=== PATIENT | female | born 1945 | race Caucasian/White ===

== ENCOUNTER 2020-06-28 08:35 | Outpatient (REF) | payer MEDICARE, SELFPAY ==
--- NOTE | ~2020-06-28 | CT_ITS ---
EXAMINATION: CT CHEST WITHOUT CONTRAST CLINICAL INFORMATION: Pulmonary nodules COMPARISON: None TECHNIQUE: Multidetector volumetric CT imaging of the chest was done. Axial MIP volume rendering provided. Sagittal and coronal reformatted images were obtained. This CT examination was performed using dose optimization techniques as appropriate, variously including the following: *Automated exposure control *Adjustment of mA and/or kV according to patient size (this includes techniques or standardized protocols for targeted exams where dose is matched to indication/reason for exam; i.e. extremities or head) *Use of iterative reconstruction technique DLP: 202 mGy-cm FINDINGS: LUNGS: There is mild biapical pleural and parenchymal scarring. There is a 3 mm right upper lobe pulmonary nodule axial image 78 series 5. There is a 3 mm peripheral left lower lobe nodule axial image 312 series 5. There is a 2 mm peripheral left lower lobe nodule axial image 340 series 5. There is a 2 mm peripheral left lower lobe nodule axial image 416 series 5. There is a 2 x 3 mm peripheral or subpleural right lower lobe nodule axial image 412 series 5. There is a 2 mm peripheral left lower lobe nodule axial image 416 series 5. MEDIASTINUM: There is coronary artery calcification. The mediastinum is otherwise normal. PLEURA: There is no pleural effusion. No pleural mass or thickening. AXILLA: No lymphadenopathy. UPPER ABDOMEN: There is a 2 low-attenuation liver lesions high in the liver measuring 1 cm in the right lobe and 5 mm in the left lobe axial image 47 series 3. There may be a 1.5 cm cyst exophytic to the upper pole of the right kidney. There is a 2 cm cyst exophytic to the upper pole of the left kidney. OSSEOUS STRUCTURES: There are degenerative changes of the spine. CT/CT chest wo con IMPRESSION: Small pulmonary nodules, largest measuring 3 mm at the right lung apex. According to the UPDATED 2017 Fleischner Society recommendations, the advised follow-up imaging for less than 6 mm nodule: Low risk, no chest CT follow-up and high risk, optional chest CT follow-up in one year. Coronary artery calcification.
== END 2020-06-28 08:36 | disposition home or self-care (01) ==
LOC: HO.CT 08:35
PROVIDERS: PCP Internal Medicine; Visit Provider Hospitalist
DX: R91.8 Other nonspecific abnormal finding of lung field (principal)
CPT/HCPCS: 71250

== ENCOUNTER → 2020-08-24 08:43 | Outpatient (BNVA) | payer MEDICARE, SELFPAY | PROVIDERS: PCP Internal Medicine; Visit Provider Hospitalist | DX: G47.33 Obstructive sleep apnea (adult) (pediatric) (principal); R91.8 Other nonspecific abnormal finding of lung field; Z99.89 Dependence on other enabling machines and devices | CPT/HCPCS: 99212 ==

== ENCOUNTER → 2021-07-14 09:40 | Outpatient (BNVA) | payer MEDICARE, SELFPAY | PROVIDERS: PCP Internal Medicine; Visit Provider Hospitalist | DX: G47.33 Obstructive sleep apnea (adult) (pediatric) (principal); R91.8 Other nonspecific abnormal finding of lung field; R06.00 Dyspnea, unspecified; Z99.89 Dependence on other enabling machines and devices | CPT/HCPCS: 99212 ==

== ENCOUNTER → 2021-08-28 21:43 | Outpatient (REF) | payer MEDICARE, SELFPAY | LOC: HO.SL 21:43 | PROVIDERS: Visit Provider Hospitalist | DX: G47.33 Obstructive sleep apnea (adult) (pediatric) (principal) | CPT/HCPCS: 95811 ==

== ENCOUNTER → 2021-09-16 10:29 | Outpatient (BNVA) | payer MEDICARE, SELFPAY | PROVIDERS: PCP Internal Medicine; Visit Provider Hospitalist | DX: G47.33 Obstructive sleep apnea (adult) (pediatric) (principal); Z99.89 Dependence on other enabling machines and devices; R91.8 Other nonspecific abnormal finding of lung field; R06.00 Dyspnea, unspecified | CPT/HCPCS: 99212 ==

== ENCOUNTER 2022-06-29 07:21 | Outpatient (REF) | payer MEDICARE, SELFPAY ==
--- NOTE | ~2022-06-29 | CT_ITS ---
EXAMINATION: CT CHEST WITHOUT CONTRAST CLINICAL INFORMATION: Abnormal lung findings COMPARISON: CT chest 06/28/2020 TECHNIQUE: Multidetector volumetric CT imaging of the chest was done. Axial MIP volume rendering provided. Sagittal and coronal reformatted images were obtained. This CT examination was performed using dose optimization techniques as appropriate, variously including the following: *Automated exposure control *Adjustment of mA and/or kV according to patient size (this includes techniques or standardized protocols for targeted exams where dose is matched to indication/reason for exam; i.e. extremities or head) *Use of iterative reconstruction technique DLP: 152 mGy-cm FINDINGS: ADULT CAREGIVER: Well-inflated lungs. LUNGS: The lungs are well-expanded and clear of acute pneumonic process. There is minimal bilateral apical parenchymal scarring and pleural thickening. There are several pulmonary nodules. A 3 mm right apical nodule image 42/6, a 2 mm right intrafissural nodule axial image 186/6, a subpleural 2 mm nodule left lower lobe axial image 181/6, a 2 mm ground-glass nodule right upper lobe axial image 172/6, a 2 mm subpleural nodule left lower lobe axial image 221/6, subpleural 2 mm nodule left lower lobe axial image 245/2, a 2 mm nodule posterior basal segment left lower lobe image 307/6. There are more subpleural 2 mm nodules right and left lower lobes axial image 311/6 and 323/6. All these nodules are stable. No acute consolidation seen. MEDIASTINUM: The thyroid lobes are symmetrical and normal. The central trachea and the bronchi are widely patent. Heart size and the great vessels are normal caliber. No pericardial effusion seen. No abnormal size mediastinal or hilar lymph nodes. CORONARY ARTERY CALCIFICATION: There is moderate coronary artery calcifications present. PLEURA: There is no pleural effusion. No pleural mass or thickening. AXILLA: No lymphadenopathy. UPPER ABDOMEN: There is an 8 mm nodule right hepatic lobe. The rest of the liver is unremarkable. Spleen, pancreas and bilateral adrenal glands unremarkable. There is a hyperdense gallbladder likely hyperdense bile or small stones. OSSEOUS STRUCTURES: There are degenerative disc changes and ventral spondylosis throughout mid and lower dorsal spine. No aggressive lytic or sclerotic process seen. CT/CT chest wo IV con IMPRESSION: 1. Stable bilateral pulmonary nodules. No new nodules seen. 2. No abnormal mediastinal or axillary lymphadenopathy. 3. Hyperdense bile or small stones in the gallbladder. 4. Small right hepatic lobe nodule, probable cyst is stable. Fleischner guidelines were followed.
== END 2022-06-29 07:22 | disposition home or self-care (01) ==
LOC: HO.CT 07:21
PROVIDERS: PCP Internal Medicine; Visit Provider Hospitalist
DX: R91.8 Other nonspecific abnormal finding of lung field (principal)
CPT/HCPCS: 71250

== ENCOUNTER → 2022-07-28 08:20 | Outpatient (BNVA) | payer MEDICARE, SELFPAY | PROVIDERS: PCP Internal Medicine; Visit Provider Hospitalist | DX: G47.33 Obstructive sleep apnea (adult) (pediatric) (principal); R91.8 Other nonspecific abnormal finding of lung field; R06.00 Dyspnea, unspecified; Z99.89 Dependence on other enabling machines and devices | CPT/HCPCS: 99212 ==

== ENCOUNTER → 2022-08-11 20:53 | Outpatient (REF) | payer MEDICARE, SELFPAY | LOC: HO.SL 20:53 | PROVIDERS: PCP Internal Medicine; Visit Provider Hospitalist | DX: G47.33 Obstructive sleep apnea (adult) (pediatric) (principal); Z99.89 Dependence on other enabling machines and devices | CPT/HCPCS: 95811 ==

== ENCOUNTER → 2022-08-11 20:56 | Outpatient (BNV) | payer MEDICARE, SELFPAY | PROVIDERS: PCP Internal Medicine; Visit Provider Psychiatry & Neurology Neurology | DX: G47.33 Obstructive sleep apnea (adult) (pediatric) (principal); G47.61 Periodic limb movement disorder | CPT/HCPCS: 95811 ==

== ENCOUNTER 2022-10-04 08:10 | Outpatient (AMB) | payer MEDICARE, SELFPAY ==
[2022-10-04 08:27] VITALS: BP 124/60; PULSE 60; O2SAT 97; BMI 25.2
--- NOTE | 2022-10-04 08:27 | MHC.OFFVIS ---
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 Her asthma has been in good control. Has been using her respiratory inhalers without any difficulties. Has been using her rescue inhaler less than 2 times a week. In regards to her CPAP she uses the CPAP every night. The CPAP therapy is effective beneficial. She tries to use it more than 4 hours a night. Sometimes she does not use it. She is wondering if she still needs her CPAP. She is trying positional changes to her sleep to see if she can do without it. Therefore, we will plan to repeat her sleep study next year. We could also consider a oral appliance if she continues having hard time with her CPAP. She also had a CT scan of the chest that we personally reviewed in the office. Has a pulmonary nodule which appears to be stable when compared to her CT scan from 2018. Also has calcifications to her coronary arteries on the CT scan. 08/29/2019 The patient is here for pulmonary follow-up visit. Overall she is doing well. She did have significant allergy symptoms is here. She was taking the Mucinex in addition to antihistamines. We did talk about considering singular in the future. Right now her allergies a better we can hold off at this time. She has been having issues with her CPAP. She has had a hard time with the nasal mask and having a dry mouth. She has tried multiple chin straps without a significant improvement. We did talk about the importance of trying a fullface mask. I did have a sample N30i mask that she is going to try period seem to fit well. She is going to call to let us know if she is tolerating his we can get a download from her machine. In the meantime she continues with respiratory medicine appears to be working well. She does have pulmonary nodules. There were unchanged in 2019 when compared to 2018. She was scheduled for CT scan in October however, she is leaving to [place]. She will be back in June. Therefore, will do it when she comes back from [place]. However, she develops any respiratory symptoms or any persistent symptoms she needs to talk to her doctors in [place] in order to consider getting the sooner. 08/24/2020 the patient is here for pulmonary follow-up visit. The patient has been struggling with her CPAP. It appears that she has been removing with now realizing. She has been having difficulties with her mask. She has been using several different masks this time. Her APAP was then a 8 to 16 centimeters. her pressure is 12.6 and her AHI is slightly elevated over 5. she usually position the mask in the early evening and is able to fall asleep and she wakes up with it her face. I did switch her to a regular CPAP of 12 centimeters started with a ramp of 8. she will use that for 2 weeks with the F30 small mask. I will be able to download the machine and see how she is doing. I did request abscess from [facility] for her view of how. The meantime she also had a CT scan of the chest back in June 2020 still demonstrating small subcentimeter pulmonary nodules largest 3 millimeters in size the this is consistent with her previous CT scan. 07/14/2021 the patient is here for a pulmonary follow-up visit. She still struggling with her CPAP. Initially we had switched her to a CPAP of 12 cm based on average pressure needs. However she was not able to tolerated. She keeps taking it off after a couple hours. She is using multiple sleep aids including lorazepam and Wellbutrin. However, those done appear to be effective in helping her staying deep sleep. The patient will benefit from taking additional sleep aids. However, with a dose of lorazepam I am concerned of the polypharmacy and medication to medication interaction. Her AHI is down to 5.0 when she does use it. I switched her back to an APAP. I do believe that with her significant sleep apnea and inability to titrate and tolerate the pressures that a titration study would be most effective and taking care of her difficulties tolerating CPAP. I will submit for titration study as well as possible. The patient also complaining of dyspnea on exertion and her blood pressure slightly elevated. We did recheck her blood pressure was better. The patient also had a CT scan of the chest back in June 2020 demonstrating subcentimeter pulmonary nodules. Will plan to follow-up with a CT scan in June 2022 to make sure that the pulmonary nodules have not changed. Once the patient undergoes addition study will have her come back to follow up with the results. 09/16/2021 the patient is here for a pulmonary follow-up visit. She continues to struggle with CPAP. We have adjusted her pressures further. She did bring her machine in and we did download the data and AHI continues to be elevated. She had undergone a CPAP titration study however, she could not tolerate the masks well and she spent a lot of time awake and therefore it was very limited. the could only titrate the CPAP and even on the titration study her AHI was still Elevated. Therefore seems that the patient is failing CPAP and she does need to switch over to BiPAP. She has significant sleep apnea specially a REM related sleep disorder. I will request the BiPAP from her [employer] at this time. In regards of her pulmonary nodules the patient was last CT scan was back in June 2021. Plan to repeat the CT scan June of 2022 unless the patient develops any worsening symptoms. 07/28/2022 the patient is here for pulmonary follow-up visit. The patient did not get a BiPAP. She continues use her CPAP. Unfortunately she continues to have daytime drowsiness. She has a hard time tolerating the CPAP. I did download her machine that she bread in in her AHI continues to be elevated around 15 events an hour. Therefore CPAP but she is not working for her. The patient does need to have a titration study to better appreciate her settings and to make sure that we can find an effective treatment for her significant sleep apnea. Patient continues to have an elevated [place] score of 12/24. In addition to that the patient did have a CT scan of the chest last back in June 2022. This was compared to a CT scan from 2020. No significant changes in the pulmonary nodules therefore reassuring. Hold off on additional imaging at this time. 10/04/2022 the patient is here for pulmonary follow-up visit. Overall the patient has been sleeping fairly decent. She has been using the gabapentin with good effect. Sometimes the some work but her most part does. 300 mg 1 hour before seems to be effective for her. If she needs additional medication she can always call and we can increase it a little bit. She sleeps on her side now sometimes she sleeps on a wedge. She sleeps better when she sleeps on her side hour. She gets better sleep. She wakes up rested. However lately she has been noticing severe abdominal discomfort that wakes her up from a sound sleep when she sleeps on her side. Does not matter left to right. She was evaluated by primary care doctor and GI doctor. She has had CT scans and MRIs. No evidence of any active concerning disease. She does have some discomfort now for which she takes a deep breath in and she compresses the belly she does get some on discomfort. It may be bloating sensation. I did recommend she can try simethicone to see if this provides her some relief. She is going to try to until she sees her GI doctor and see if this helps. In the meantime the patient will continue the gabapentin. In regards of her sleep apnea seems like her sleep study that she had recently was reassuring that she does not need to use CPAP. However, she has had a CPAP for many years. Will go ahead and retest her with a home sleep study in the spring when she comes back in [place]. [facility] Medical History (Updated 10/04/22 @ 18:41 by José Miguel Benjamin MD) Dyspnea Insomnia MAGDA (obstructive sleep apnea) MAGDA on CPAP Pulmonary nodules Social History (Updated 08/24/20 @ 08:58 by Rhonda Castillo Milka) Patient Tobacco Use Status: Never used Tobacco Review of Systems Const Denies daytime sleepiness and Denies night sweats ENT Denies change in voice, Denies lip swelling, Denies mouth pain, Reports nasal congestion, Reports nasal discharge and Denies tongue swelling Card Denies chest pain and Denies dyspnea on exertion Resp Denies cough and Denies dyspnea on exertion GI Reports abdominal pain Musc Denies no additional complaints Skin/Breast Denies rash Neuro Denies Neuro-related abnormal movements Psych Denies no additional complaints Frank/Lymph Denies easy bleeding and Denies lymphadenopathy Aller/Immun Denies lip swelling and Denies tongue swelling Physical Exam Vital Signs: Last Vital Signs Pulse 60 10/04/22 08:27 BP 124/60 08/30/23 08:27 Pulse Ox 97 10/04/22 08:27 Oxygen Delivery Method Room Air 10/04/22 08:27 BMI result Body Mass Index 25.2 Const General: alert HEENT Head: Yes normal to inspection Neck Neck: Yes normal visual inspection, Yes full ROM and Yes no lymphadenopathy Chest Chest palpation & inspection: normal inspection of the chest Resp Auscultation: clear to auscultation bilaterally Cardio Rate: regular rate Rhythm: regular rhythm Heart sounds: S1 normal heart sound present and S2 normal heart sound present GI Palpation (GI): Soft to palpation, Tenderness to palpation present (GI) in the LLQ, in the RLQ, in the LUQ and in the RUQ and Guarding due to palpation present (GI) Auscultation: normal bowel sounds Skin General skin exam: rashes and/or lesions noted Extrem General: No clubbing, No cyanosis and No edema Assessment & Plan Assessment & Plan (1) Pulmonary nodules: Code(s): R91.8 - Other nonspecific abnormal finding of lung field (2) Dyspnea: Code(s): R06.00 - Dyspnea, unspecified (3) Insomnia: Code(s): G47.00 - Insomnia, unspecified (4) Abdominal pain: Code(s): R10.9 - Unspecified abdominal pain (5) MAGDA (obstructive sleep apnea): Comment: no longer on CPAP Code(s): G47.33 - Obstructive sleep apnea (adult) (pediatric) Plan continue Gabapentin 300mg PO QHS Trial simethicone at night positional sleep therapy for MAGDA, will plan to repeat home sleep study in the spring 2023 pulmonary nodules have been stable based on her recent CT scan 06/2022. Therefore nodules appear to be benign. No additional serial CT scans at this time. F/U 6-8 months Medications: New gabapentin 300 mg PO BEDTIME 30 days 30 caps 11RF simethicone (Gas Relief (simethicone)) 180 mg PO DAILY 30 days 30 caps 11RF Coding Level of Care Code Est Pt Level 4 (30456) Diagnoses Pulmonary nodules R91.8 Dyspnea R06.00 Insomnia G47.00 Abdominal pain R10.9 MAGDA (obstructive sleep apnea) G47.33 Time Spent (min) 18
== END 2022-10-04 08:56 | disposition home or self-care (01) ==
PROVIDERS: PCP Internal Medicine; Visit Provider Hospitalist
DX: R91.8 Other nonspecific abnormal finding of lung field (principal); R06.00 Dyspnea, unspecified; G47.00 Insomnia, unspecified; R10.9 Unspecified abdominal pain; G47.33 Obstructive sleep apnea (adult) (pediatric)
CPT/HCPCS: 99214

== ENCOUNTER → 2022-10-04 08:10 | Outpatient (BNVA) | payer MEDICARE, SELFPAY | PROVIDERS: PCP Internal Medicine; Visit Provider Hospitalist | DX: R91.8 Other nonspecific abnormal finding of lung field (principal); R06.00 Dyspnea, unspecified; G47.00 Insomnia, unspecified; R10.9 Unspecified abdominal pain; G47.33 Obstructive sleep apnea (adult) (pediatric); Z79.899 Other long term (current) drug therapy | CPT/HCPCS: 99212 ==

== ENCOUNTER 2023-08-20 10:07 | Outpatient (AMB) | payer MEDICARE, SELFPAY ==
--- NOTE | 2023-08-20 10:15 | A.OFFVIS_ITS ---
Vital Signs 08/20/23 10:16 Height 5 ft 3 in Weight 141 lb 5.061 oz BMI 25.0 BP 124/60 Blood Pressure Location Lt brachial Position Sitting Pulse 61 Pulse Source Pulse Oximeter Pulse Oximetry (%) 96 Oxygen Delivery Method Room Air Intake Visit Reasons: pulm nodule Ethylbenzene Cracking Supervisor Required: No Allergies hydromorphone [Dilaudid] Allergy (Severe, Verified 08/20/23 10:19) Hives Benadryl Allergy (Severe, Uncoded 08/20/23 10:19) Itching Penicillin Allergy (Severe, Uncoded 08/20/23 10:19) Rash HPI Comments Details: The patient is a 78 y/o woman with a history of COPD, MAGDA on CPAP in addition to pulmonary nodules. Her asthma has been in good control. Has been using her respiratory inhalers without any difficulties. Has been using her rescue inhaler less than 2 times a week. In regards to her CPAP she uses the CPAP every night. The CPAP therapy is effective beneficial. She tries to use it more than 4 hours a night. Sometimes she does not use it. She is wondering if she still needs her CPAP. She is trying positional changes to her sleep to see if she can do without it. Therefore, we will plan to repeat her sleep study next year. We could also consider a oral appliance if she continues having hard time with her CPAP. She also had a CT scan of the chest that we personally reviewed in the o ffice. Has a pulmonary nodule which appears to be stable when compared to her CT scan from 2018. Also has calcifications to her coronary arteries on the CT scan. 08/29/2019 The patient is here for pulmonary follow-up visit. Overall she is doing well. She did have significant allergy symptoms is here. She was taking the Mucinex in addition to antihistamines. We did talk about considering singular in the future. Right now her allergies a better we can hold off at this time. She has been having issues with her CPAP. She has had a hard time with the nasal mask and having a dry mouth. She has tried multiple chin straps without a significant improvement. We did talk about the importance of trying a fullface mask. I did have a sample N30i mask that she is going to try period seem to fit well. She is going to call to let us know if she is tolerating his we can get a download from her machine. In the meantime she continues with respiratory medicine appears to be working well. She does have pulmonary nodules. There were unchanged in 2019 when compared to 2018. She was scheduled for CT scan in October however, she is leaving to [place]. She will be back in June. Therefore, will do it when she comes back from [place]. However, she develops any respiratory symptoms or any persistent symptoms she needs to talk to her doctors in [place] in order to consider getting the sooner. 08/24/2020 the patient is here for pulmonary follow-up visit. The patient has been struggling with her CPAP. It appears that she has been removing with now realizing. She has been having difficulties with her mask. She has been using several different masks this time. Her APAP was then a 8 to 16 centimeters. her pressure is 12.6 and her AHI is slightly elevated over 5. she usually position the mask in the early evening and is able to fall asleep and she wakes up with it her face. I did switch her to a regular CPAP of 12 centimeters started with a ramp of 8. she will use that for 2 weeks with the F30 small mask. I will be able to download the machine and see how she is doing. I did request abscess from [facility] for her view of how. The meantime she also had a CT scan of the chest back in June 2020 still demonstrating small subcentimeter pulmonary nodules largest 3 millimeters in size the this is consistent with her previous CT scan. 07/14/2021 the patient is here for a pulmonary follow-up visit. She still struggling with her CPAP. Initially we had switched her to a CPAP of 12 cm based on average pressure needs. However she was not able to tolerated. She keeps taking it off after a couple hours. She is using multiple sleep aids including lorazepam and Wellbutrin. However, those done appear to be effective in helping her staying deep sleep. The patient will benefit from taking additional sleep aids. However, with a dose of lorazepam I am concerned of the polypharmacy and medication to medication interaction. Her AHI is down to 5.0 when she does use it. I switched her back to an APAP. I do believe that with her significant sleep apnea and inability to titrate and tolerate the pressures that a titration study would be most effective and taking care of her difficulties tolerating CPAP. I will submit for titration study as well as possible. The patient also complaining of dyspnea on exertion and her blood pressure slightly elevated. We did recheck her blood pressure was better. The patient also had a CT scan of the chest back in June 2020 demonstrating subcentimeter pulmonary nodules. Will plan to follow-up with a CT scan in June 2022 to make sure that the pulmonary nodules have not changed. Once the patient undergoes addition study will have her come back to follow up with the results. 09/16/2021 the patient is here for a pulmonary follow-up visit. She continues to struggle with CPAP. We have adjusted her pressures further. She did bring her machine in and we did download the data and AHI continues to be elevated. She had undergone a CPAP titration study however, she could not tolerate the masks well and she spent a lot of time awake and therefore it was very limited. the could only titrate the CPAP and even on the titration study her AHI was still Elevated. Therefore seems that the patient is failing CPAP and she does need to switch over to BiPAP. She has significant sleep apnea specially a REM related sleep disorder. I will request the BiPAP from her [employer] at this time. In regards of her pulmonary nodules the patient was last CT scan was back in June 2021. Plan to repeat the CT scan June of 2022 unless the patient develops any worsening symptoms. 07/28/2022 the patient is here for pulmonary follow-up visit. The patient did not get a BiPAP. She continues use her CPAP. Unfortunately she continues to have daytime drowsiness. She has a hard time tolerating the CPAP. I did download her machine that she bread in in her AHI continues to be elevated around 15 events an hour. Therefore CPAP but she is not working for her. The patient does need to have a titration study to better appreciate her settings and to make sure that we can find an effective treatment for her significant sleep apnea. Patient continues to have an elevated Burlington score of 12/24. In addition to that the patient did have a CT scan of the chest last back in June 2022. This was compared to a CT scan from 2020. No significant changes in the pulmonary nodules therefore reassuring. Hold off on additional imaging at this time. 10/04/2022 the patient is here for pulmonary follow-up visit. Overall the patient has been sleeping fairly decent. She has been using the gabapentin with good effect. Sometimes the some work but her most part does. 300 mg 1 hour before seems to be effective for her. If she needs additional medication she can always call and we can increase it a little bit. She sleeps on her side now sometimes she sleeps on a wedge. She sleeps better when she sleeps on her side hour. She gets better sleep. She wakes up rested. However lately she has been noticing severe abdominal discomfort that wakes her up from a sound sleep when she sleeps on her side. Does not matter left to right. She was evaluated by primary care doctor and GI doctor. She has had CT scans and MRIs. No evidence of any active concerning disease. She does have some discomfort now for which she takes a deep breath in and she compresses the belly she does get some on discomfort. It may be bloating sensation. I did recommend she can try simethicone to see if this provides her some relief. She is going to try to until she sees her GI doctor and see if this helps. In the meantime the patient will continue the gabapentin. In regards of her sleep apnea seems like her sleep study that she had recently was reassuring that she does not need to use CPAP. However, she has had a CPAP for many years. Will go ahead and retest her with a home sleep study in the spring when she comes back in [place]. 08/20/2023 the patient is here for a pulmonary follow-up visit. Overall the patient is from respiratory status. She continues use the gabapentin at nighttime for sleep with good effect. In addition to that she has been on the simethicone as needed for her abdominal discomfort she is feeling better. We did review her CT scan that she had back in 06/24/2022 demonstrating a gallblad kervin with increased viscosity of the bile versus significant amount of stones. I did add the final report to this no so she can keep an eye out and follow-up with primary care. As far as her pulmonary nodules are extremely small measuring 23 mm in size and have not changed in more than a couple years therefore no additional serial CT scans are warranted although if the patient develops any worsening symptoms we can always readdress. As far as her sleep apnea she is currently doing positional therapy and she is feeling well well rested in the morning with an Burlington score of 6/24. Therefore no need for CPAP at this time. She is having a raspiness of the voice. Likely some degree of postnasal drip and potential infection. Will go ahead and treat her with chlorhexidine mouthwash N/C she gets any relief and also she will start a [id number] steroid nasal spray for 2-4 weeks. Hopefully she has some relief. If not by the time she gets to [place] in October she can make an appointment with her ENT doctor. [facility] Medical History (Updated 08/20/23 @ 22:19 by José Miguel Benjamin MD) MAGDA (obstructive sleep apnea) Insomnia Dyspnea Pulmonary nodules MAGDA on CPAP Social History (Updated 08/24/20 @ 08:58 by RAMON Anglin) Patient Tobacco Use Status: Never used Tobacco Review of Systems Const Denies daytime sleepiness and Denies night sweats ENT Denies change in voice, Denies lip swelling, Denies mouth pain, Reports nasal congestion, Reports nasal discharge and Denies tongue swelling Card Denies chest pain and Denies dyspnea on exertion Resp Denies cough and Denies dyspnea on exertion GI Reports abdominal pain Musc Denies no additional complaints Skin/Breast Denies rash Neuro Denies Neuro-related abnormal movements Psych Denies no additional complaints Frank/Lymph Denies easy bleeding and Denies lymphadenopathy Aller/Immun Denies lip swelling and Denies tongue swelling Physical Exam Vital Signs: Last Vital Signs Pulse 61 08/20/23 10:16 BP 124/60 08/20/23 10:16 Pulse Ox 96 08/20/23 10:16 Oxygen Delivery Method Room Air 08/20/23 10:16 BMI result Body Mass Index 25.0 Const General: alert HEENT Head: Yes normal to inspection Neck Neck: Yes normal visual inspection, Yes full ROM and Yes no lymphadenopathy Chest Chest palpation & inspection: normal inspection of the chest Resp Auscultation: clear to auscultation bilaterally Cardio Rate: regular rate Rhythm: regular rhythm Heart sounds: S1 normal heart sound present and S2 normal heart sound present GI Palpation (GI): Soft to palpation Auscultation: normal bowel sounds Skin General skin exam: rashes and/or lesions noted Extrem General: No clubbing, No cyanosis and No edema Results Reviewed Results Reviewed: Close Chest CT (Signed) Shakir Lomas - 06/29/[address] (Signed) Indy Torres - 06/28/20 [facility] [address] [place] [address] CT Scan Report Signed Patient: Sangita Núñez MR#: [id number] : 1945 Acct:[id number] Age/Sex: 77 / F ADM Date: 06/29/22 Loc: .CT Attending Dr: José Miguel Benjamin MD Ordering Physician: José Miguel Benjamin MD Date of Service: 06/29/22 Procedure(s): CT chest wo IV con Accession Number(s): [id number] cc: José Miguel Benjamin MD~ EXAMINATION: CT CHEST WITHOUT CONTRAST CLINICAL INFORMATION: Abnormal lung findings COMPARISON: CT chest 06/28/2020 TECHNIQUE: Multidetector volumetric CT imaging of the chest was done. Axial MIP volume rendering provided. Sagittal and coronal reformatted images were obtained. This CT examination was performed using dose optimization techniques as appropriate, variously including the following: *Automated exposure control *Adjustment of mA and/or kV according to patient size (this includes techniques or standardized protocols for targeted exams where dose is matched to indication/reason for exam; i.e. extremities or head) *Use of iterative reconstruction technique DLP: 152 mGy-cm FINDINGS: POULTRY SCIENTIST: Well-inflated lungs. LUNGS: The lungs are well-expanded and clear of acute pneumonic process. There is minimal bilateral apical parenchymal scarring and pleural thickening. There are several pulmonary nodules. A 3 mm right apical nodule image 42/6, a 2 mm right intrafissural nodule axial image 186/6, a subpleural 2 mm nodule left lower lobe axial image 181/6, a 2 mm ground-glass nodule right upper lobe axial image 172/6, a 2 mm subpleural nodule left lower lobe axial image 221/6, subpleural 2 mm nodule left lower lobe axial image 245/2, a 2 mm nodule posterior basal segment left lower lobe image 307/6. There are more subpleural 2 mm nodules right and left lower lobes axial image 311/6 and 323/6. All these nodules are stable. No acute consolidation seen. MEDIASTINUM: The thyroid lobes are symmetrical and normal. The central trachea and the bronchi are widely patent. Heart size and the great vessels are normal caliber. No pericardial effusion seen. No abnormal size mediastinal or hilar lymph nodes. CORONARY ARTERY CALCIFICATION: There is moderate coronary artery calcifications present. PLEURA: There is no pleural effusion. No pleural mass or thickening. AXILLA: No lymphadenopathy. UPPER ABDOMEN: There is an 8 mm nodule right hepatic lobe. The rest of the liver is unremarkable. Spleen, pancreas and bilateral adrenal glands unremarkable. There is a hyperdense gallbladder likely hyperdense bile or small stones. OSSEOUS STRUCTURES: There are degenerative disc changes and ventral spondylosis throughout mid and lower dorsal spine. No aggressive lytic or sclerotic process seen. CT/CT chest wo IV con IMPRESSION: 1. Stable bilateral pulmonary nodules. No new nodules seen. 2. No abnormal mediastinal or axillary lymphadenopathy. 3. Hyperdense bile or small stones in the gallbladder. 4. Small right hepatic lobe nodule, probable cyst is stable. Fleischner guidelines were followed. Assessment & Plan Assessment & Plan (1) Pulmonary nodules: Code(s): R91.8 - Other nonspecific abnormal finding of lung field Category: Medical (2) Dyspnea: Code(s): R06.00 - Dyspnea, unspecified Category: Medical Qualifiers: Dyspnea type: dyspnea on exertion Qualified Code(s): R06.09 - Other forms of dyspnea (3) Insomnia: Code(s): G47.00 - Insomnia, unspecified Category: Medical Qualifiers: Insomnia type: primary Qualified Code(s): F51.01 - Primary insomnia (4) MAGDA (obstructive sleep apnea): Comment: no longer on CPAP Code(s): G47.33 - Obstructive sleep apnea (adult) (pediatric) Category: Medical Plan continue Gabapentin 300mg PO QHS simethicone at night positional sleep therapy for MAGDA, will plan to repeat home sleep study if symptomatic pulmonary nodules have been stable based on her recent CT scan 06/2022. Therefore nodules appear to be benign. No additional serial CT scans at this time. CXR nasal spray OTC Consider ENT eval ([place]) F/U 8-12 months Orders: Orders XR chest 2V Today R91.8 - Other nonspecific abnormal finding of lung field Medications: New chlorhexidine gluconate 0.12% 15 mL buccal BID 14 days 420 mL 0RF Coding Level of Care Code Est Pt Level 4 (91139) Diagnoses Pulmonary nodules R91.8 Dyspnea on exertion R06.09 Dyspnea type: dyspnea on exertion Primary insomnia F51.01 Insomnia type: primary MAGDA (obstructive sleep apnea) G47.33 Time Spent (min) 16
[2023-08-20 10:16] VITALS: BP 124/60; PULSE 61; O2SAT 96; BMI 25.0
== END 2023-08-20 10:39 | disposition home or self-care (01) ==
PROVIDERS: PCP Internal Medicine; Visit Provider Hospitalist
DX: R91.8 Other nonspecific abnormal finding of lung field (principal); R06.09 Other forms of dyspnea; F51.01 Primary insomnia; G47.33 Obstructive sleep apnea (adult) (pediatric)
CPT/HCPCS: 99214

== ENCOUNTER → 2023-08-20 10:07 | Outpatient (BNVA) | payer MEDICARE, SELFPAY | PROVIDERS: PCP Internal Medicine; Visit Provider Hospitalist | DX: R91.8 Other nonspecific abnormal finding of lung field (principal); R06.09 Other forms of dyspnea; G47.33 Obstructive sleep apnea (adult) (pediatric); F51.01 Primary insomnia | CPT/HCPCS: 99212 ==

== ENCOUNTER 2023-09-10 10:20 | Day surgery (SDC) | payer MEDICARE, SELFPAY ==
[2023-09-05 09:07] VITALS: BMI 24.2
--- NOTE | 2023-09-06 15:41 | HO.ANESPROP2 ---
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 Diverticulitis Migraine COPD (chronic obstructive pulmonary disease) Depression Hypothyroid Hyperlipemia HTN (hypertension) MAGDA (obstructive sleep apnea) Insomnia Dyspnea Pulmonary nodules Surgical History Surgical History Hx of section History of colon resection History of back surgery Surgical history unknown Social History Social History Patient Tobacco Use Status: Never used Tobacco Advance Directives: No (unknown) Advance Directives Information Provided: Yes Nutrition Risks: Surgical patient >75years Meds Allergies Allergy/AdvReac Type Severity Reaction Status Date / Time diphenhydramine Allergy Severe Itching Verified 09/10/23 12:18 [From Benadryl] hydromorphone [Dilaudid] Allergy Severe Hives Verified 09/10/23 12:18 Penicillins Allergy Severe Rash Verified 09/10/23 12:18 ciprofloxacin [From Cipro] Allergy Swelling Verified 09/10/23 12:18 Home Medications ?Medication ?Instructions ?Recorded ?Confirmed ?Last Taken ?Type levothyroxine 88 mcg tablet 88 mcg PO DAILY 08/24/20 09/05/23 09/10/23 06:30 History pravastatin 20 mg tablet 20 mg PO DAILY 08/24/20 09/05/23 Unknown History CPAP (CPAP Machine/Device) 07/28/22 09/05/23 Unknown History allopurinol 100 mg tablet 100 mg PO QID 07/28/22 09/05/23 Unknown History pantoprazole 40 mg tablet,delayed 40 mg PO BID 07/28/22 09/05/23 09/10/23 06:30 History release bupropion HCl 150 mg 24 hr tablet, 150 mg PO DAILY 10/04/22 09/05/23 Unknown History extended release amlodipine 5 mg tablet 5 mg PO DAILY 08/20/23 09/05/23 09/10/23 06:30 History clonidine HCl 0.1 mg tablet 0.1 mg PO BID 08/20/23 09/05/23 Unknown History lorazepam 1 mg tablet 1 mg PO TID PRN Anxiety 08/20/23 09/05/23 Unknown History methenamine hippurate 1 gram tablet 1 g PO BID 08/20/23 09/05/23 Unknown History cholecalciferol (vitamin D3) 25 25 mcg PO DAILY 09/05/23 09/05/23 Unknown History mcg (1,000 unit) capsule (Vitamin D3) ferrous sulfate 27 mg iron tablet 27 mg PO DAILY 09/05/23 09/05/23 Unknown History magnesium oxide 500 mg PO DAILY 09/05/23 09/05/23 Unknown History Exam Height,Weight and Vital Signs: Height 5 ft 3.78 in Weight 63.5 kg Assessment and Plan Assessment Anesthesia Assessment: Chart Reviewed Documented by User: Nandini Tesfaye MD 09/10/23 12:37 [facility] Past Medical History Medical History Asthma 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 Diverticulitis Migraine COPD (chronic obstructive pulmonary disease) Depression Hypothyroid Hyperlipemia HTN (hypertension) MAGDA (obstructive sleep apnea) Insomnia Dyspnea Pulmonary nodules Family History Family history of problems with anesthesia: No Surgical History Surgical History Hx of section History of colon resection History of back surgery Surgical history unknown History of Problems with Anesthesia: No Social History Social History Patient Tobacco Use Status: Never used Tobacco Advance Directives: No (unknown) Advance Directives Information Provided: Yes Nutrition Risks: Surgical patient >75years Meds Allergies Allergy/AdvReac Type Severity Reaction Status Date / Time diphenhydramine Allergy Severe Itching Verified 09/10/23 12:18 [From Benadryl] hydromorphone [Dilaudid] Allergy Severe Hives Verified 09/10/23 12:18 Penicillins Allergy Severe Rash Verified 09/10/23 12:18 ciprofloxacin [From Cipro] Allergy Swelling Verified 09/10/23 12:18 Home Medications ?Medication ?Instructions ?Recorded ?Confirmed ?Last Taken ?Type levothyroxine 88 mcg tablet 88 mcg PO DAILY 08/24/20 09/05/23 09/10/23 06:30 History pravastatin 20 mg tablet 20 mg PO DAILY 08/24/20 09/05/23 Unknown History CPAP (CPAP Machine/Device) 07/28/22 09/05/23 Unknown History allopurinol 100 mg tablet 100 mg PO QID 07/28/22 09/05/23 Unknown History pantoprazole 40 mg tablet,delayed 40 mg PO BID 07/28/22 09/05/23 09/10/23 06:30 History release bupropion HCl 150 mg 24 hr tablet, 150 mg PO DAILY 10/04/22 09/05/23 Unknown History extended release amlodipine 5 mg tablet 5 mg PO DAILY 08/20/23 09/05/23 09/10/23 06:30 History clonidine HCl 0.1 mg tablet 0.1 mg PO BID 08/20/23 09/05/23 Unknown History lorazepam 1 mg tablet 1 mg PO TID PRN Anxiety 08/20/23 09/05/23 Unknown History methenamine hippurate 1 gram tablet 1 g PO BID 08/20/23 09/05/23 Unknown History cholecalciferol (vitamin D3) 25 25 mcg PO DAILY 09/05/23 09/05/23 Unknown History mcg (1,000 unit) capsule (Vitamin D3) ferrous sulfate 27 mg iron tablet 27 mg PO DAILY 09/05/23 09/05/23 Unknown History magnesium oxide 500 mg PO DAILY 09/05/23 09/05/23 Unknown History Exam Airway Mallampati Class: II TM Dist: >3cm Neck ROM: Limited Heart: rrr Lungs: cta Assessment and Plan Assessment Anesthesia Assessment: Anesthesia Plan Discussed Final Anesthetic Review Family History of Problems with Anesthesia: No History of Problems with Anesthesia: No NPO: Yes ASA Class: III Final Preanesthetic Review: No Changes in Pt Med Stat, Meds/Allgs Chart Reviewed, Consent Obtained/Reviewed and Anes Risks/Benef Reviewed Patient Risk: Intermediate Procedure Risk: Low Anesthetic Plan Anesthetic Plan: MAC: Disposition: Standard PACU
[2023-09-10] MEDS: Tetracaine HCl/PF 0.5% Oph Sol 4 ML DROPS 1 DROP EYE-RIGHT (12:08)
[2023-09-10] MEDS: Cyclopentolate 1 % Ophth Sol 2 ML DRPBTL 1 DROP EYE-RIGHT ×3 (12:10→12:20)
[2023-09-10] MEDS: Tropicamide 1 % Ophth Sol 3 ML BTL 1 DROP EYE-RIGHT ×3 (12:11→12:21)
[2023-09-10] MEDS: Ketorolac Tromethamine 0.5% Op 10 ML DROPS 1 DROP EYE-RIGHT ×3 (12:12→12:22)
[2023-09-10] MEDS: Phenylephrine HCL 2.5% Oph SoL 2 ML BOTTLE 1 DROP EYE-RIGHT ×3 (12:13→12:23)
[2023-09-10 12:19] VITALS: BP 169/71; PULSE 81; RESP 16; TEMP 36.6; O2SAT 99
[2023-09-10] MEDS: Lactated Ringers 500 ML 50 ML IV (12:33)
--- NOTE | 2023-09-10 13:36 | MHC.SHP ---
Pre-Procedural Eval Section A - 24 Hr Update-Section A only Date of Service: 09/10/23 The patient is an INPATIENT: No Changes since office visit: No Cold of Flu in the past 2 weeks, No New Medical Problems, No Changes in Medication and No Patient answered all questions The patient has been examined within 24 hours of the surgical procedure. The History & Physical has been completed within 30 days and I have reviewed it.: Yes Section B - Complete if H&P > 30 days Chief Complaint: Age-related nuclear cataract, right eye Allergies: Allergies Allergy/AdvReac Type Severity Reaction Status Date / Time diphenhydramine Allergy Severe Itching Verified 09/10/23 12:18 [From Benadryl] hydromorphone [Dilaudid] Allergy Severe Hives Verified 09/10/23 12:18 Penicillins Allergy Severe Rash Verified 09/10/23 12:18 ciprofloxacin [From Cipro] Allergy Swelling Verified 09/10/23 12:18 Plan Diagnosis/Plan: Unchanged I have reviewed the history and physical and performed a pertinent physical examination on my patient. No changes have occurred unless specified. Time Spent With Patient Time: Total time managing care of this patient today ____ minutes.
--- NOTE | 2023-09-10 13:36 | HO.PNOPHT ---
Ophthalmology Procedure Procedure Date of Service: 09/10/23 Ophthalmology Viscoelastic: Healon Duet Dual Pack Pro Ophthalmology Lenses: IOL Acrysof MP - MA60AC (20.5)
[2023-09-10 14:05] VITALS: BP 148/72; PULSE 73; RESP 16; TEMP 36.1; O2SAT 99
== END 2023-09-10 14:18 | disposition home or self-care (01) ==
PROVIDERS: PCP Internal Medicine; Visit Provider Ophthalmology
PROC: (CPT 66985; principal; 2023-09-10 13:00)
DX: H25.11 Age-related nuclear cataract, right eye (principal); H54.7 Unspecified visual loss; G47.33 Obstructive sleep apnea (adult) (pediatric)
CPT/HCPCS: 66984; J2250; J3301; V2630